=== PATIENT | female | born 1955 | race Caucasian/White ===

== ENCOUNTER → 2016-08-25 | Outpatient (CLI) | payer BC ==
[~2016-08-25] MED LIST: CALCIUM1 CAP PO; LUTEIN20 MG PO; PROTONIX 40MG T40 MG PO; TENORMIN 5050 MG/TAB PO; ZOCOR 20MG20 MG PO
== END ==
LOC: MC.RAD 09:00
DX: Z12.31 Encounter for screening mammogram for malignant neoplasm of breast (principal)

== ENCOUNTER → 2018-03-30 | Outpatient (CLI) | payer BC | LOC: MC.RAD 08:18 | DX: Z12.31 Encounter for screening mammogram for malignant neoplasm of breast (principal) ==

== ENCOUNTER → 2018-10-13 | Outpatient (CLI) | payer BC | LOC: MC.RAD 13:58 | DX: N63.21 Unspecified lump in the left breast, upper outer quadrant (principal) | CPT/HCPCS: G0279 ==

== ENCOUNTER → 2019-08-17 | Outpatient (CLI) | payer BC | LOC: MC.RAD 07:55 | DX: Z12.31 Encounter for screening mammogram for malignant neoplasm of breast (principal) ==

== ENCOUNTER → 2020-09-02 | Outpatient (CLI) | payer BC | LOC: MC.RAD 14:24 | DX: Z12.31 Encounter for screening mammogram for malignant neoplasm of breast (principal); N64.89 Other specified disorders of breast; R92.0 Mammographic microcalcification found on diagnostic imaging of breast ==

== ENCOUNTER → 2020-09-06 | Outpatient (CLI) | payer BC | LOC: MC.RAD 13:57 | DX: R92.8 Other abnormal and inconclusive findings on diagnostic imaging of breast (principal); R92.0 Mammographic microcalcification found on diagnostic imaging of breast ==

== ENCOUNTER 2021-12-11 11:45 | Emergency (ER) | payer OTHER, BC ==
[~2021-12-11] VITALS: Ht 170.2 cm; Wt 90.9 kg
[2021-12-11 12:05] VITALS: TEMP 98
[2021-12-11 13:42] VITALS: BP 166/82; PULSE 53
== END 2021-12-11 13:42 | disposition home or self-care (01) ==
LOC: COL.ER 11:45
DX: S01.01XA Laceration without foreign body of scalp, initial encounter (principal); Z23 Encounter for immunization; Z88.6 Allergy status to analgesic agent; W18.40XA Slipping, tripping and stumbling without falling, unspecified, initial encounter; W22.8XXA Striking against or struck by other objects, initial encounter; Y92.59 Other trade areas as the place of occurrence of the external cause; Y99.0 Civilian activity done for income or pay

== ENCOUNTER → 2021-12-17 | Outpatient (CLI) | payer OTHER, BC ==
[2021-12-17 13:20] VITALS: BP 139/72; PULSE 50
== END ==
LOC: COL.ER 13:04
DX: Z48.02 Encounter for removal of sutures (principal)

== ENCOUNTER → 2023-08-25 | Outpatient (CLI) | payer MEDICARE, BC | LOC: MC.RAD 08:42 | DX: Z12.31 Encounter for screening mammogram for malignant neoplasm of breast (principal) ==